=== PATIENT | female | born 1985 | race African-American/Black ===

== ENCOUNTER 2017-04-29 10:41 | Emergency (ER) | payer OTHER ==
[2017-04-29 10:46] VITALS: BP 142/84; PULSE 72; TEMP 99.3; BMI 35.4
--- NOTE | 2017-04-29 11:06 | PDOC ---
History of Present Illness - General Chief Complaint: Injury Stated Complaint: LEFT ANKLE PAIN S/P TRIPPED AND FELL Time Seen by Provider: 04/29/17 10:44 History Source: Patient Exam Limitations: No Limitations - History of Present Illness Initial Comments: 04/29/17 11:03 CHIEF COMPLAINT: Left ankle injury HISTORY OF PRESENT ILLNESS: Patient states she was at work at [employer] yesterday. It was around 4 PM when she went in the copy room and slipped on some papers on the floor. She twisted her left ankle. She denies any other injuries. When she got home she noticed the ankle swelling progressively with increasing pain. The pain is primarily at the lateral left ankle, and it radiates up the leg. REVIEW OF SYSTEMS: No fever or chills No head or neck injury No chest pain or dizziness No syncope Past History - Past Medical History Allergies/Adverse Reactions: Allergies Allergy/AdvReac Type Severity Reaction Status Date / Time Penicillins Allergy Mild Rash Verified 04/29/17 10:43 Home Medications: Ambulatory Orders Ibuprofen 600 mg PO Q6H PRN #20 tablet 04/29/17 Anemia: No Asthma: No Cancer: No Cardiac Disorders: No CVA: No Other medical history: PT DENIES - Surgical History Abdominal Surgery: Yes Appendectomy: No Cardiac Surgery: No Cholecystectomy: No - Psycho/Social/Smoking Cessation Hx Anxiety: No Suicidal Ideation: No Smoking Status: Yes Smoking History: Never smoked Number of Cigarettes Smoked Daily: 0 Information on smoking cessation initiated: No Hx Alcohol Use: No Drug/Substance Use Hx: No Substance Use Type: None *Physical Exam - Vital Signs Last Vital Signs Temp Pulse Resp BP Pulse Ox 99.3 F 72 18 142/84 100 04/29/17 10:42 04/29/17 10:42 04/29/17 10:42 04/29/17 10:42 04/29/17 10:42 - Physical Exam Comments: 04/29/17 11:05 GENERAL: The patient is awake, alert, and fully oriented, in no acute distress. Patient is ambulatory with a limp. HEAD: Normal with no signs of trauma. EYES: Pupils equal, round and reactive to light, extraocular movements intact, sclera anicteric, conjunctiva clear. EXTREMITIES: Left ankle with swelling and tenderness at the lateral malleolus around the distal fibula. Medially there is no tenderness. The skin is intact. Pulses are 2+ and equal. Capillary refill is normal. NEUROLOGICAL: Normal speech, normal gait. PSYCH: Normal mood, normal affect. SKIN: Warm, Dry, normal turgor, no rashes or lesions noted. ED Treatment Course - RADIOLOGY Radiology Studies Ordered: Category Date Time Status ANKLE-LEFT [RAD] Stat Radiology 04/29/17 11:01 Ordered Medical Decision Making - Medical Decision Making 04/29/17 12:13 Patient presents today with a left ankle injury from last evening at work. There is notable swelling of the lateral malleolus with some tenderness. Skin is intact, circulatory and neuro examinations are intact. The x-ray shows possible widening of the mortise joint, possibly consistent with a syndesmosis injury. There is no visible fracture. Impression: Left ankle sprain, possible syndesmosis injury. Plan: Aircast placed on the left ankle. Patient advised nonweightbearing with crutches. Referral to orthopedic surgery with advice to be seen within 48 hours and to maintain nonweightbearing until x-rays are followed up. Prescription for Motrin provided. *DC/Admit/Observation/Transfer Diagnosis at time of Disposition: Left ankle sprain Qualifiers: Encounter type: initial encounter Involved ligament of ankle: unspecified ligament Qualified Code(s): S93.402A - Sprain of unspecified ligament of left ankle, initial encounter - Discharge Dispostion Disposition: HOME Condition at time of disposition: Stable Admit: No - Prescriptions Prescriptions: Ibuprofen 600 mg PO Q6H PRN #20 tablet PRN Reason: Pain - Referrals Referrals: Raghu Dang MD [Staff Physician] - Call tomorrow (left ankle injury, question of widening of the mortise joint on xray, possible syndesmosis injury.) - Patient Instructions Printed Discharge Instructions: DI for Ankle Sprain Additional Instructions: You were evaluated today for a left ankle injury. There is no visible broken bone, but it does appear there is an injury to the ligaments. Please keep the air cast in place when up out of bed. Walk with crutches and do not put any weight on your ankle until you are seen in follow-up by the orthopedic surgeon. Take motrin as needed for pain, 600 mg every 6 hours. The prescription has been sent electronically to your pharmacy. It is advised that you are seen within the next 48 hours. Return to the emergency department for any severe or progressive symptoms.
== END 2017-04-29 13:02 | disposition home or self-care (01) ==
LOC: FER 10:41
PROC: 2W3TX1Z Immobilization of Left Foot using Splint (ICD-10-PCS; principal; 2017-04-29)
DX: S93.402A Sprain of unspecified ligament of left ankle, initial encounter (principal); X58.XXXA Exposure to other specified factors, initial encounter; Y93.89 Activity, other specified; Y92.159 Unspecified place in reform school as the place of occurrence of the external cause; Y99.0 Civilian activity done for income or pay
CPT/HCPCS: 73610-TC-LT; 99282-25

== ENCOUNTER 2019-02-02 09:43 | Emergency (ER) | payer OTHER ==
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
[2019-02-02 10:01] VITALS: BP 128/87; PULSE 74; TEMP 98.3; BMI 37.5
[2019-02-02] MEDS ORDERED: KETOROLAC TROMETHAMINE 30 MG/1 ML VIAL IM ONE (10:18)
[2019-02-02] MEDS ORDERED: CYCLOBENZAPRINE HCL 10 MG TABLET (FP) PO ONE ×2 (10:19→10:21)
[2019-02-02] MEDS ORDERED: LIDOCAINE 5% TOPICAL PATCH TP ONE (10:19)
[2019-02-02] MEDS ORDERED: KETOROLAC TROMETHAMINE 30 MG/1 ML VIAL ONE (10:22)
[2019-02-02] MEDS ORDERED: CYCLOBENZAPRINE HCL 10 MG TABLET (FP) ONE (10:22)
[2019-02-02] MEDS ORDERED: LIDOCAINE 5% TOPICAL PATCH ONE (10:23)
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
[2019-02-02] MEDS ORDERED: LIDOCAINE PATCH REMOVAL MC SCH (22:00)
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
== END 2019-02-02 13:16 | disposition home or self-care (01) ==
LOC: FER 09:43
PROC: 3E0233Z Introduction of Anti-inflammatory into Muscle, Percutaneous Approach (ICD-10-PCS; principal; 2019-02-02)
DX: Z04.3 Encounter for examination and observation following other accident (principal)
CPT/HCPCS: 71046-TC-FY; 71120-TC-FY; 72125-TC; 72128-TC; 84703; 93005; 99283-25

== ENCOUNTER 2023-10-27 10:38 | Day surgery (SDC) | payer OTHER ==
[2023-10-27 11:13] VITALS: BMI 40.1
[2023-10-27] MEDS ORDERED: MIDAZOLAM HCL 2 MG/2 ML SINGLE DOSE VIAL ONE (13:08)
[2023-10-27] MEDS ORDERED: FENTANYL CITRATE/PF 50 MCG/ML VIAL ONE (13:08)
[2023-10-27] MEDS ORDERED: DEXAMETHASONE SOD PHOSPHATE 4 MG/1 ML VIAL ONE (13:20)
[2023-10-27] MEDS ORDERED: DEXAMETHASONE SOD PHOSPHATE 10 MG/1 ML VIAL ONE (13:21)
[2023-10-27] MEDS ORDERED: PROPOFOL 20 ML ONE (13:21)
[2023-10-27] MEDS ORDERED: BUPIVACAINE HCL/PF 0.25% (2.5MG/ML) 10 ML VIAL IJ ONE (13:22)
[2023-10-27] MEDS ORDERED: DEXAMETHASONE SOD PHOSPHATE 10 MG/1 ML VIAL IVPUSH ONE (13:22)
[2023-10-27] MEDS ORDERED: IOHEXOL 180 MG/1 ML ML IJ ONE (13:22)
[2023-10-27 14:30] VITALS: BP 109/64; PULSE 76; TEMP 97.5
[2023-10-27 14:31] VITALS: RESP 16
== END 2023-10-27 14:33 | disposition home or self-care (01) ==
LOC: JASU-SURG 10:38
PROVIDERS: ATTEND Physical Medicine & Rehabilitation
PROC: 3E0R3BZ Introduction of Anesthetic Agent into Spinal Canal, Percutaneous Approach (ICD-10-PCS; 2023-10-27)
PROC: 3E0R33Z Introduction of Anti-inflammatory into Spinal Canal, Percutaneous Approach (ICD-10-PCS; principal; 2023-10-27 12:30)
DX: M54.16 Radiculopathy, lumbar region (principal)
CPT/HCPCS: 76000-TC-FY; 81025; J1100